=== PATIENT | female | born 1990 | race Caucasian/White ===

== ENCOUNTER → 2019-10-03 | Outpatient (CLI) | payer OTHER | LOC: ZCOL.LAB 11:03 | DX: Z20.828 Contact with and (suspected) exposure to other viral communicable diseases (principal) ==

== ENCOUNTER → 2019-11-28 | Outpatient (CLI) | payer OTHER ==
[2019-11-28 21:59] LABS: ESTRADIOL 25 pg/mL (())
[2019-11-29 04:31] LABS: FOLLICLE STIMULATING HORMONE 6.7 mIU/mL (())
[2019-11-29 12:53] LABS: RUBEOLA (MEASLES) IGM ANTIBODY <1:10 (<1:10)
== END ==
LOC: COL.LAB 12:42
PROVIDERS: Obstetrics & Gynecology Reproductive Endocrinology
DX: Z32.00 Encounter for pregnancy test, result unknown (principal); Z31.41 Encounter for fertility testing; Z20.828 Contact with and (suspected) exposure to other viral communicable diseases

== ENCOUNTER → 2019-12-23 | Outpatient (CLI) | payer OTHER | LOC: COL.LAB 17:16 | DX: Z32.00 Encounter for pregnancy test, result unknown (principal) ==

== ENCOUNTER → 2020-02-12 | Outpatient (CLI) | payer OTHER | LOC: COL.LAB 10:43 | DX: Z32.00 Encounter for pregnancy test, result unknown (principal) ==